=== PATIENT | male | born 1970 | race Caucasian/White ===

== ENCOUNTER → 2024-01-24 09:47 | Outpatient (REF) | payer BC, SELFPAY | LOC: WDC 09:47 | PROVIDERS: ATTENDING PHYSICIAN Nurse Practitioner; REFERRING PHYSICIAN Family Medicine | DX: R59.0 Localized enlarged lymph nodes (principal); R22.2 Localized swelling, mass and lump, trunk; N64.59 Other signs and symptoms in breast | CPT/HCPCS: 76604; 76642; 77062; 77066 ==